=== PATIENT | female | born 1940 | race African-American/Black ===

== ENCOUNTER 2017-01-19 15:22 | Inpatient (IN) | payer MEDICARE, MEDICAID ==
[~2017-01-19] VITALS: Ht 160 cm; Wt 82.6 kg
[~2017-01-19 15:22] MED LIST: AMLO10TA80 PO; CLON0.1T PO; GABA-533 PO; LOSA100T14 PO; LOSA25TA12; NIFEDIPINE PO; OMEP20CA10 PO; SIMV40TA5 PO; [UNRECOGNIZED DRUG - CODE] PO; coumadin PO
[2017-01-19] MEDS ORDERED: ASPIRIN 81MG TABLET PO ONE (17:15)
[2017-01-19] MEDS: NITROGLYCERIN 0.4MG TABLET SL SL PRN ×3 (17:29→19:15)
[2017-01-19 17:47] LABS: BASOPHILS % 0.9 % (0.0-2.0); EOSINOPHILS % 4.1 % (0.0-5.0); HEMATOCRIT. 36.7 % (36.0-48.0); HEMOGLOBIN. 12.2 g/dL (12.0-16.0); LYMPHOCYTES % 26.6 % (20.0-50.0); MEAN CORPUSCULAR HEMOGLOBIN 24.7 pg (28.0-32.0); MEAN CORPUSCULAR VOLUME 74.2 fL (81.0-99.0); MEAN PLATELET VOLUME 8.5 fl (7.4-10.4); NEUTROPHILS % 60.4 % (40.0-76.0); PLATELET 240 x1000/uL (130-400); RED BLOOD CELL COUNT 4.94 mill/uL (4.2-5.4); RED CELL DISTRIBUTION WIDTH 15.5 % (11.6-14.6)
[2017-01-19 17:50] LABS: CHLORIDE 107 mEq/L (98-107)
[2017-01-19 17:52] LABS: PROTHROMBIN TIME 10.8 sec
[2017-01-19 17:56] LABS: CARBON DIOXIDE 28 mEq/L (21-32)
[2017-01-19 18:01] LABS: TROPONIN I 0.31 ng/mL (0.00-0.04)
[2017-01-19] MEDS ORDERED: NITROGLYCERIN OINT 1GM/INCH UDPKT TD ONE (18:15)
[2017-01-19] MEDS ORDERED: FUROSEMIDE 40MG/4ML VIAL IVP ONE (18:15)
[2017-01-19] MEDS ORDERED: ENOXAPARIN 80MG/0.8ML SYR SUBCUT ONE (18:15)
[2017-01-19] MEDS ORDERED: MORPHINE SULFATE 4 MG/ML CPJ (NOT FOR IM USE) IV ONE (20:00)
[2017-01-19] MEDS ORDERED: HYDRALAZINE 20MG/ML VIAL IV ONE (20:00)
[2017-01-19 21:30] VITALS: BP 152/90
[2017-01-19 22:00] VITALS: BP 160/76
[2017-01-20] VITALS (11 sets, daily range): BP systolic 120–170; BP diastolic 57–103
[2017-01-20] MEDS ORDERED: CILOSTAZOL (00:14)
[2017-01-20] MEDS ORDERED: CILO100T PO (00:14)
[2017-01-20] MEDS ORDERED: CYAN10009 PO (00:14)
[2017-01-20] MEDS ORDERED: ACET-2178 PO ×2 (00:14→00:20)
[2017-01-20] MEDS ORDERED: METROPOLOL (00:14)
[2017-01-20] MEDS ORDERED: MYLANTA (00:14)
[2017-01-20] MEDS ORDERED: ASPI-1035 PO (00:14)
[2017-01-20 02:04] LABS: CREATINE KINASE MB FRACTION 1.2 ng/mL (0.5-3.6); TROPONIN I 0.22 ng/mL (0.00-0.04)
[2017-01-20 05:47] LABS: BASOPHILS % 0.4 % (0.0-2.0); EOSINOPHILS % 0.7 % (0.0-5.0); HEMATOCRIT. 35.8 % (36.0-48.0); HEMOGLOBIN. 12.2 g/dL (12.0-16.0); LYMPHOCYTES % 16.3 % (20.0-50.0); MEAN CORPUSCULAR VOLUME 73.7 fL (81.0-99.0); MEAN PLATELET VOLUME 8.6 fl (7.4-10.4); MONOCYTES % 6.6 % (2.0-8.0); PLATELET 231 x1000/uL (130-400); RED BLOOD CELL COUNT 4.86 mill/uL (4.2-5.4); RED CELL DISTRIBUTION WIDTH 15.4 % (11.6-14.6)
[2017-01-20] MEDS: OMEPRAZOLE 20MG CAPSULE EXTENDED RELEASE PO SCH (06:23)
[2017-01-20] MEDS ORDERED: MYLANTA PRN (06:30)
[2017-01-20] MEDS ORDERED: ACETAMINOPHEN 325MG TABLET PO PRN ×2 (06:30→14:00)
[2017-01-20 06:51] LABS: CHLORIDE 105 mEq/L (98-107); HDL CHOLESTEROL 65 mg/dL (40-59); LDL CHOLESTEROL 154 mg/dL (5-100)
[2017-01-20 06:54] LABS: CARBON DIOXIDE 26 mEq/L (21-32)
[2017-01-20] MEDS ORDERED: MAGNESIUM/ALUMINUM HYDROXIDE/SIMETHICONE 30ML UDC PO PRN (07:00)
[2017-01-20] MEDS: LOSARTAN POTASSIUM 100 MG TABLET PO SCH (08:13)
[2017-01-20] MEDS: ASPIRIN 81MG EC TABLET PO SCH (08:13)
[2017-01-20] MEDS: ACETAMINOPHEN 325MG TABLET PO PRN ×2 (08:15→21:47)
[2017-01-20] MEDS ORDERED: ONDANSETRON HCL 4MG/2ML VIAL IV PRN ×2 (08:15→14:00)
[2017-01-20] MEDS: CYANOCOBALAMIN 1000MCG TABLET PO SCH (08:15)
[2017-01-20] MEDS: GABAPENTIN 400MG CAPSULE PO SCH (08:15)
[2017-01-20] MEDS ORDERED: METOPROLOL TARTRATE 50MG TABLET PO SCH (09:00)
[2017-01-20] MEDS ORDERED: METROPOLOL 50 MG PO SCH (09:00)
[2017-01-20 09:57] LABS: CREATINE KINASE MB FRACTION 1.2 ng/mL (0.5-3.6); TROPONIN I 0.21 ng/mL (0.00-0.04)
[2017-01-20] MEDS ORDERED: POTASSIUM CHLORIDE 20MEQ TABLET SR PO NR (10:45)
[2017-01-20] MEDS: CILOSTAZOL 100MG TABLET PO SCH ×2 (11:15→17:19)
[2017-01-20] MEDS: CLONIDINE 0.1MG TABLET PO SCH ×2 (11:19→21:05)
[2017-01-20] MEDS ORDERED: LIDOCAINE HCL 1% 20ML VIAL (Pyxis) INJ ONE (12:57)
[2017-01-20] MEDS ORDERED: IOHEXOL-300 100 ML BOTTLE ONE (12:57)
[2017-01-20] MEDS ORDERED: MIDAZOLAM HCL 2 MG/2 ML VIAL ONE (12:58)
[2017-01-20] MEDS ORDERED: FENTANYL CITRATE/PF 50MCG/ML 2ML VIAL ONE (12:58)
[2017-01-20] MEDS ORDERED: ATROPINE SULFATE 1MG/10ML SYR IV PRN (14:00)
[2017-01-20] MEDS: ENOXAPARIN 80MG/0.8ML SYR SUBCUT SCH (17:19)
[2017-01-20 18:33] LABS: CREATINE KINASE MB FRACTION 1.5 ng/mL (0.5-3.6)
[2017-01-20] MEDS ORDERED: ATORVASTATIN CALCIUM 20MG TABLET PO SCH (21:00)
[2017-01-20] MEDS: ATORVASTATIN CALCIUM 40MG TABLET PO SCH (21:05)
[2017-01-21] VITALS (12 sets, daily range): BP systolic 96–147; BP diastolic 40–71
[2017-01-21] MEDS: CLONIDINE 0.1MG TABLET PO SCH ×3 (06:00→21:28)
[2017-01-21] MEDS: OMEPRAZOLE 20MG CAPSULE EXTENDED RELEASE PO SCH (06:33)
[2017-01-21] MEDS: ENOXAPARIN 80MG/0.8ML SYR SUBCUT SCH ×2 (06:37→21:29)
[2017-01-21 06:51] LABS: BASOPHILS % 0.6 % (0.0-2.0); EOSINOPHILS % 4.1 % (0.0-5.0); HEMATOCRIT. 33.9 % (36.0-48.0); HEMOGLOBIN. 11.4 g/dL (12.0-16.0); LYMPHOCYTES % 23.2 % (20.0-50.0); MEAN CORPUSCULAR HEMOGLOBIN 25.1 pg (28.0-32.0); MEAN CORPUSCULAR VOLUME 74.4 fL (81.0-99.0); MEAN PLATELET VOLUME 8.8 fl (7.4-10.4); MONOCYTES % 8.9 % (2.0-8.0); NEUTROPHILS % 63.2 % (40.0-76.0); PLATELET 221 x1000/uL (130-400); RED BLOOD CELL COUNT 4.55 mill/uL (4.2-5.4); RED CELL DISTRIBUTION WIDTH 15.5 % (11.6-14.6)
[2017-01-21 07:10] LABS: TROPONIN I 0.19 ng/mL (0.00-0.04)
[2017-01-21] MEDS ORDERED: ERGOCALCIFEROL 50000UNITS CAPSULE PO SCH (09:00)
[2017-01-21] MEDS: LOSARTAN POTASSIUM 100 MG TABLET PO SCH (09:56)
[2017-01-21] MEDS: ASPIRIN 81MG EC TABLET PO SCH (09:56)
[2017-01-21] MEDS: CILOSTAZOL 100MG TABLET PO SCH ×2 (09:56→17:48)
[2017-01-21] MEDS: CYANOCOBALAMIN 1000MCG TABLET PO SCH (09:56)
[2017-01-21] MEDS: GABAPENTIN 400MG CAPSULE PO SCH (09:56)
[2017-01-21] MEDS ORDERED: MAGNESIUM HYDROXIDE 400MG/5ML 30ML UDC PO PRN (10:15)
[2017-01-21] MEDS ORDERED: ALPRAZOLAM 0.25 MG TABLET PO PRN (13:15)
[2017-01-21] MEDS ORDERED: ACETAMINOPHEN 325MG TABLET PO PRN (13:15)
[2017-01-21] MEDS ORDERED: NITROGLYCERIN 0.4MG TABLET SL SL PRN (13:15)
[2017-01-21] MEDS ORDERED: DOCUSATE SODIUM 100MG CAPSULE PO SCH (21:00)
[2017-01-21] MEDS ORDERED: BISACODYL 10MG SUPP PR PRN (21:00)
[2017-01-21] MEDS: ATORVASTATIN CALCIUM 40MG TABLET PO SCH (21:28)
[2017-01-21] MEDS: HYDROCODONE/ACETAMINOPHEN 5/325MG TABLET PO PRN ×2 (21:35→23:08)
[2017-01-22] VITALS (14 sets, daily range): BP systolic 91–135; BP diastolic 48–80
[2017-01-22] MEDS: FAMOTIDINE 20MG TABLET PO SCH (06:08)
[2017-01-22] MEDS: CLONIDINE 0.1MG TABLET PO SCH ×3 (06:08→22:19)
[2017-01-22] MEDS: GABAPENTIN 400MG CAPSULE PO SCH (09:34)
[2017-01-22] MEDS: CYANOCOBALAMIN 1000MCG TABLET PO SCH (09:34)
[2017-01-22] MEDS: ASPIRIN 81MG EC TABLET PO SCH (09:34)
[2017-01-22] MEDS: LOSARTAN POTASSIUM 100 MG TABLET PO SCH (09:34)
[2017-01-22] MEDS: ENOXAPARIN 80MG/0.8ML SYR SUBCUT SCH (09:35)
[2017-01-22 14:36] LABS: CLARITY URINE CLOUDY (CLEAR); COLOR URINE DARK YELLOW (YELLOW); GLUCOSE URINE NEGATIVE (NEGATIVE); KETONES URINE TRACE (NEGATIVE); LEUKOCYTE ESTERASE URINE 2+ (NEGATIVE); NITRITE URINE NEGATIVE (NEGATIVE); OCCULT BLOOD URINE NEGATIVE (NEGATIVE); PH URINE 5.5 (4.5-8.0); PROTEIN URINE NEGATIVE (NEGATIVE); SPECIFIC GRAVITY URINE 1.022 (1.005-1.030)
[2017-01-22] MEDS: ATORVASTATIN CALCIUM 40MG TABLET PO SCH (20:44)
[2017-01-22] MEDS: HYDROCODONE/ACETAMINOPHEN 5/325MG TABLET PO PRN (20:45)
[2017-01-22] MEDS: ALLOPURINOL 300 MG TABLET PO SCH (20:45)
[2017-01-22] MEDS ORDERED: ASCORBIC ACID 500 MG TABLET PO SCH (21:00)
[2017-01-22] MEDS ORDERED: CHLORHEXIDINE GLUCONATE 4% EXTERNAL USE TOP SCH (21:00)
[2017-01-23] VITALS (28 sets, daily range): BP systolic 77–221; BP diastolic 47–116
[2017-01-23] MEDS ORDERED: NICARDIPINE 50 MG in NS 250 ML IV NR (05:00)
[2017-01-23] MEDS: ALLOPURINOL 300 MG TABLET PO SCH (05:36)
[2017-01-23] MEDS ORDERED: NOREPINEPHRINE 4 MG in DEXT 5% WATER 246 ML IV NR (06:00)
[2017-01-23] MEDS ORDERED: EPINEPHRINE 4 MG in DEXT 5% WATER 246 ML IV NR (06:00)
[2017-01-23] MEDS ORDERED: INSULIN REGULAR 100 UNITS in SODIUM CHLORIDE 0.9% 100ML IV ONE (06:00)
[2017-01-23] MEDS ORDERED: DEL NIDO ELECTROLYTE-S(PH 7.4) 1,000 ML IV ONE (06:00)
[2017-01-23] MEDS: CLONIDINE 0.1MG TABLET PO SCH (06:00)
[2017-01-23] MEDS: FAMOTIDINE 20MG TABLET PO SCH (06:26)
[2017-01-23 07:06] LABS: BASOPHILS % 0.5 % (0.0-2.0); EOSINOPHILS % 5.4 % (0.0-5.0); HEMATOCRIT. 32.3 % (36.0-48.0); HEMOGLOBIN. 10.9 g/dL (12.0-16.0); LYMPHOCYTES % 34.2 % (20.0-50.0); MEAN CORPUSCULAR HEMOGLOBIN 25.1 pg (28.0-32.0); MEAN CORPUSCULAR VOLUME 74.5 fL (81.0-99.0); MEAN PLATELET VOLUME 8.8 fl (7.4-10.4); MONOCYTES % 10.2 % (2.0-8.0); NEUTROPHILS % 49.7 % (40.0-76.0); PLATELET 180 x1000/uL (130-400); PROTHROMBIN TIME 10.7 sec; RED BLOOD CELL COUNT 4.34 mill/uL (4.2-5.4); RED CELL DISTRIBUTION WIDTH 15.5 % (11.6-14.6)
[2017-01-23 07:55] LABS: CARBON DIOXIDE 26 mEq/L (21-32); CHLORIDE 107 mEq/L (98-107)
[2017-01-23] MEDS: GABAPENTIN 400MG CAPSULE PO SCH (08:44)
[2017-01-23] MEDS: LOSARTAN POTASSIUM 100 MG TABLET PO SCH (08:44)
[2017-01-23] MEDS: CYANOCOBALAMIN 1000MCG TABLET PO SCH (08:44)
[2017-01-23] MEDS ORDERED: CHLORHEXIDINE GLUCONATE 4% EXTERNAL USE TOP SCH (09:00)
[2017-01-23] MEDS ORDERED: PAPAVERINE HCL 180MG in SODIUM CHLORIDE 0.9% 24ML IV ONE (09:00)
[2017-01-23] MEDS: ASPIRIN 81MG EC TABLET PO SCH (10:09)
[2017-01-23] MEDS ORDERED: INSULIN REGULAR (DRIP) 100 UNITS in SODIUM CHLORIDE 0.9% 99 ML IV ONE (10:45)
[2017-01-23] MEDS: HYDRALAZINE 20MG/ML VIAL IV PRN (10:46)
[2017-01-23] MEDS ORDERED: METHYLENE BLUE 50 MG/10 ML AMP IV SCH (11:00)
[2017-01-23] MEDS ORDERED: VANCOMYCIN 1G PREMIX 200ML IV NR (12:00)
[2017-01-23] MEDS ORDERED: DEXAMETHASONE 4MG/ML 1ML VIAL ONE (12:22)
[2017-01-23] MEDS ORDERED: ROCURONIUM BROMIDE 10MG/ML VIAL 5ML IV ONE (12:22)
[2017-01-23] MEDS ORDERED: PROPOFOL 200MG/20ML VIAL IV ONE (12:22)
[2017-01-23] MEDS ORDERED: VASOPRESSIN 20 UNIT/ML 1ML ONE (12:22)
[2017-01-23] MEDS ORDERED: BACITRACIN ZINC 15GM TUBE TOP ONE (12:26)
[2017-01-23] MEDS ORDERED: LEVOFLOXACIN 500MG PREMIX 100 ML IV ONE (12:26)
[2017-01-23] MEDS ORDERED: AMINOCAPROIC ACID 250 MG/ML 20ML VIAL ONE (12:28)
[2017-01-23] MEDS ORDERED: FENTANYL CITRATE/PF 50MCG/ML 5ML VIAL ONE (12:33)
[2017-01-23] MEDS ORDERED: MIDAZOLAM HCL 5 MG/ML VIAL ONE (12:33)
[2017-01-23] MEDS ORDERED: PROPOFOL 10MG/ML 100ML 100 ML IV ONE ×2 (13:36→17:41)
[2017-01-23] MEDS ORDERED: NITROGLYCERIN 50MG PREMIX 250 ML IV ONE (13:36)
[2017-01-23] MEDS ORDERED: POTASSIUM CHLORIDE 40MEQ/20ML INJ IV ONE (13:44)
[2017-01-23] MEDS ORDERED: HEPARIN 1000 UNITS/ML 10ML ONE (14:03)
[2017-01-23] MEDS ORDERED: PROTAMINE SULFATE 10MG/ML VIAL 25ML IV ONE (17:10)
[2017-01-23] MEDS ORDERED: FUROSEMIDE 20MG/2ML VIAL ONE (17:57)
[2017-01-23] MEDS ORDERED: NITROGLYCERIN 50MG PREMIX 250 ML IV SCH (19:38)
[2017-01-23] MEDS ORDERED: DEXT 5%/0.45% NACL 1000ML 1,000 ML IV SCH (19:38)
[2017-01-23] MEDS ORDERED: SODIUM CHLORIDE 0.9% 500 ML IV PRN (19:38)
[2017-01-23] MEDS ORDERED: NOREPINEPHRINE 4 MG in DEXT 5% WATER 250 ML IV SCH (19:38)
[2017-01-23] MEDS ORDERED: MAGNESIUM 1 G PREMIX 100 ML IV PRN (19:45)
[2017-01-23] MEDS ORDERED: ALBUMIN HUMAN 12.5G/250ML (5%) IV PRN (19:45)
[2017-01-23] MEDS ORDERED: ONDANSETRON HCL 4MG/2ML VIAL IV PRN (19:45)
[2017-01-23] MEDS ORDERED: ACETAMINOPHEN 325MG TABLET PO PRN (19:45)
[2017-01-23] MEDS ORDERED: OXYCODONE HCL/ACETAMINOPHEN 5/325MG TABLET PO PRN ×2 (19:45)
[2017-01-23 20:00] LABS: BG BASE EXCESS -2.7 mmol/L (-2.0-2.0); BG CARBOXYHEMOGLOBIN 0.4 % (0.5-1.5); BG DEOXYHEMOGLOBIN 0.8 % (0.0-5.0); BG FRACTION INSPIRED OXYGEN 100; BG HCO3 ACT 18.9 mmol/L (22.0-26.0); BG METHEMOGLOBIN 0.5 % (0.0-1.5); BG OXYGEN SATURATION 99.2 % (92.0-98.5); BG OXYHEMOGLOBIN 98.3 % (94.0-97.0); BG PCO2 25.9 mmHg (35.0-45.0); BG PH 7.482 (7.350-7.450); BG PO2 300.7 mmHg (75.0-100.0); BG PRESSURE SUPPORT 10; BG SAMPLE SITE A-LINE; BG TIDAL VOLUME(mL) 600 mL; BG TOTAL HEMOGLOBIN 15.3 g/dL (12.0-18.0); BG VENT MODE VENT - SIMV; BG VENT RATE 12 set
[2017-01-23 20:13] LABS: HEMATOCRIT. 45.7 % (36.0-48.0); HEMOGLOBIN. 15.5 g/dL (12.0-16.0); MEAN CORPUSCULAR HEMOGLOBIN 26.2 pg (28.0-32.0); MEAN CORPUSCULAR VOLUME 77.3 fL (81.0-99.0); MEAN PLATELET VOLUME 7.6 fl (7.4-10.4); PLATELET 214 x1000/uL (130-400); RED CELL DISTRIBUTION WIDTH 17.8 % (11.6-14.6)
[2017-01-23 20:16] LABS: CHLORIDE 115 mEq/L (98-107)
[2017-01-23 20:19] LABS: INR 1.2; PARTIAL THROMBOPLASTIN TIME 26.3 sec (24.0-34.0); PROTHROMBIN TIME 12.3 sec
[2017-01-23 20:20] LABS: BG CARBOXYHEMOGLOBIN 1.1 % (0.5-1.5); BG DEOXYHEMOGLOBIN 22.4 % (0.0-5.0); BG FRACTION INSPIRED OXYGEN 100; BG METHEMOGLOBIN 0.4 % (0.0-1.5); BG OXYGEN SATURATION 77.3 % (92.0-98.5); BG OXYHEMOGLOBIN 76.1 % (94.0-97.0); BG PO2 38.4 mmHg (75.0-100.0); BG PRESSURE SUPPORT 10; BG SAMPLE SITE A-LINE; BG TIDAL VOLUME(mL) 600 mL; BG TOTAL HEMOGLOBIN 16.6 g/dL (12.0-18.0); BG VENT MODE VENT - SIMV; BG VENT RATE 12 set
[2017-01-23 20:21] LABS: CARBON DIOXIDE 23 mEq/L (21-32)
[2017-01-23] MEDS ORDERED: ALBUMIN HUMAN 25GM/500ML (5%) IV ONE (20:30)
[2017-01-23 20:36] LABS: PLATELET ESTIMATE NORMAL
[2017-01-23 21:23] LABS: BG BASE EXCESS -3.1 mmol/L (-2.0-2.0); BG CARBOXYHEMOGLOBIN 0.8 % (0.5-1.5); BG DEOXYHEMOGLOBIN 2.5 % (0.0-5.0); BG FRACTION INSPIRED OXYGEN 50; BG HCO3 ACT 20.5 mmol/L (22.0-26.0); BG METHEMOGLOBIN 0.3 % (0.0-1.5); BG OXYGEN SATURATION 97.5 % (92.0-98.5); BG OXYHEMOGLOBIN 96.4 % (94.0-97.0); BG PCO2 32.6 mmHg (35.0-45.0); BG PH 7.416 (7.350-7.450); BG PO2 97.1 mmHg (75.0-100.0); BG PRESSURE SUPPORT 10; BG SAMPLE SITE A-LINE; BG TIDAL VOLUME(mL) 550 mL; BG TOTAL HEMOGLOBIN 14.6 g/dL (12.0-18.0); BG VENT MODE VENT - SIMV; BG VENT RATE 12 set
[2017-01-23] MEDS ORDERED: ALBUMIN HUMAN 12.5G/250ML (5%) IV ONE ×3 (21:30)
[2017-01-23] MEDS ORDERED: CALCIUM CHLORIDE 1,000 MG in DEXT 5% WATER 250 ML IV NR (22:00)
[2017-01-23] MEDS: MORPHINE SULFATE 2 MG/ML CPJ (NOT FOR IM USE) IV PRN (23:25)
[2017-01-24] VITALS (92 sets, daily range): BP systolic 102–159; BP diastolic 41–84
[2017-01-24 00:11] LABS: HEMATOCRIT. 37.8 % (36.0-48.0); HEMOGLOBIN. 12.8 g/dL (12.0-16.0); MEAN PLATELET VOLUME 7.6 fl (7.4-10.4); PLATELET 189 x1000/uL (130-400); RED BLOOD CELL COUNT 4.91 mill/uL (4.2-5.4)
[2017-01-24 00:13] LABS: CHLORIDE 114 mEq/L (98-107)
[2017-01-24 00:18] LABS: CARBON DIOXIDE 24 mEq/L (21-32)
[2017-01-24] MEDS: KCL 10MEQ/50ML PREMIX 50 ML IV NR ×2 (00:29→00:56)
[2017-01-24] MEDS ORDERED: VANCOMYCIN 1 G PREMIX 200 ML IV SCH (02:00)
[2017-01-24] MEDS: MAGNESIUM/ALUMINUM HYDROXIDE/SIMETHICONE 30ML UDC NG SCH (04:00)
[2017-01-24] MEDS ORDERED: NICARDIPINE 50 MG in SODIUM CHLORIDE 0.9% 230 ML IV PRN (04:45)
[2017-01-24 05:35] LABS: HEMATOCRIT. 35.6 % (36.0-48.0); HEMOGLOBIN. 12.1 g/dL (12.0-16.0); MEAN CORPUSCULAR HEMOGLOBIN 26.2 pg (28.0-32.0); MEAN CORPUSCULAR VOLUME 76.7 fL (81.0-99.0); MEAN PLATELET VOLUME 7.7 fl (7.4-10.4); PLATELET 162 x1000/uL (130-400); RED BLOOD CELL COUNT 4.64 mill/uL (4.2-5.4)
[2017-01-24 05:41] LABS: CARBON DIOXIDE 26 mEq/L (21-32); CHLORIDE 115 mEq/L (98-107)
[2017-01-24] MEDS: KCL 10MEQ/50ML PREMIX 50 ML IV SCH ×2 (06:37→08:40)
[2017-01-24] MEDS ORDERED: ALBUMIN HUMAN 12.5G/250ML (5%) IV SCH (06:45)
[2017-01-24 08:39] LABS: PLATELET ESTIMATE NORMAL
[2017-01-24 08:43] LABS: PLATELET ESTIMATE NORMAL
[2017-01-24] MEDS ORDERED: KETOROLAC 15MG/ML VIAL IV SCH (08:45)
[2017-01-24] MEDS ORDERED: MAGNESIUM/ALUMINUM HYDROXIDE/SIMETHICONE 30ML UDC NG PRN (08:45)
[2017-01-24] MEDS: DEXT 5%/0.2% NACL 1,000 ML IV SCH (08:52)
[2017-01-24] MEDS ORDERED: FAMOTIDINE 20MG/2ML VIAL IV SCH (09:00)
[2017-01-24 09:08] LABS: BG BASE EXCESS -0.8 mmol/L (-2.0-2.0); BG CARBOXYHEMOGLOBIN 0.5 % (0.5-1.5); BG DEOXYHEMOGLOBIN 6.8 % (0.0-5.0); BG FRACTION INSPIRED OXYGEN 28; BG HCO3 ACT 22.1 mmol/L (22.0-26.0); BG METHEMOGLOBIN 0.2 % (0.0-1.5); BG OXYGEN SATURATION 93.2 % (92.0-98.5); BG OXYHEMOGLOBIN 92.5 % (94.0-97.0); BG PCO2 31.4 mmHg (35.0-45.0); BG PH 7.465 (7.350-7.450); BG PO2 66.9 mmHg (75.0-100.0); BG SAMPLE SITE A-LINE; BG TOTAL HEMOGLOBIN 12.8 g/dL (12.0-18.0); BG VENT MODE MASK - AEROSOL
[2017-01-24 09:27] LABS: BG BASE EXCESS -1.2 mmol/L (-2.0-2.0); BG CARBOXYHEMOGLOBIN 0.8 % (0.5-1.5); BG DEOXYHEMOGLOBIN 4.1 % (0.0-5.0); BG FRACTION INSPIRED OXYGEN 40; BG HCO3 ACT 22.3 mmol/L (22.0-26.0); BG METHEMOGLOBIN 0.3 % (0.0-1.5); BG OXYGEN SATURATION 95.9 % (92.0-98.5); BG OXYHEMOGLOBIN 94.8 % (94.0-97.0); BG PCO2 33.4 mmHg (35.0-45.0); BG PH 7.442 (7.350-7.450); BG PRESSURE SUPPORT 10; BG SAMPLE SITE LEFT BRACHIAL; BG VENT MODE VENT - CPAP
[2017-01-24] MEDS ORDERED: NICARDIPINE 100 MG in DEXT 5% WATER 60 ML IV PRN (09:30)
[2017-01-24] MEDS: IPRATROPIUM/ALBUTEROL 0.5-3(2.5)MG/3ML NEB HHN SCH ×3 (12:34→20:48)
[2017-01-24] MEDS ORDERED: ALBUMIN HUMAN 12.5G/250ML (5%) IV ONE (13:55)
[2017-01-24] MEDS ORDERED: POTASSIUM CHLORIDE 10MEQ IN WATER 50ML PREMIX IV ONE (13:55)
[2017-01-24] MEDS: ASPIRIN 81MG TABLET PO SCH (14:05)
[2017-01-24] MEDS ORDERED: CLONIDINE 0.1MG TABLET PO PRN (14:45)
[2017-01-24] MEDS: KETOROLAC 15MG/ML VIAL IV PRN (14:48)
[2017-01-24] MEDS: GABAPENTIN 400MG CAPSULE PO SCH (15:32)
[2017-01-24] MEDS: METOPROLOL TARTRATE 50MG TABLET PO SCH ×2 (15:32→21:49)
[2017-01-24] MEDS ORDERED: ALBUMIN HUMAN 12.5G/250ML (5%) IV NR (16:00)
[2017-01-24] MEDS: TRAMADOL 50MG TABLET PO PRN (16:00)
[2017-01-24 19:11] LABS: CARBON DIOXIDE 24 mEq/L (21-32); CHLORIDE 112 mEq/L (98-107)
[2017-01-24] MEDS ORDERED: FUROSEMIDE 20MG/2ML VIAL IVP NR (19:45)
[2017-01-24] MEDS: LOSARTAN POTASSIUM 50 MG TABLET PO SCH (21:49)
[2017-01-24] MEDS: ATORVASTATIN CALCIUM 40MG TABLET PO SCH (21:49)
[2017-01-25] VITALS (59 sets, daily range): BP systolic 92–152; BP diastolic 42–94
[2017-01-25] MEDS: TRAMADOL 50MG TABLET PO PRN ×2 (00:03→06:20)
[2017-01-25] MEDS: IPRATROPIUM/ALBUTEROL 0.5-3(2.5)MG/3ML NEB HHN SCH ×4 (00:33→12:45)
[2017-01-25] MEDS ORDERED: INSULIN REGULAR (DRIP) 100 UNITS in SODIUM CHLORIDE 0.9% 99 ML IV PRN (01:30)
[2017-01-25] MEDS ORDERED: INSULIN REGULAR (DRIP) 100 UNITS in SODIUM CHLORIDE 0.9% 99 ML IV SCH (01:34)
[2017-01-25] MEDS ORDERED: DEXTROSE 50% WATER 50ML SYRINGE IV PRN ×3 (01:45→11:00)
[2017-01-25] MEDS: BLOOD SUGAR DIAGNOSTIC STRIP TEST SCH ×10 (02:39→20:48)
[2017-01-25] MEDS: DEXT 5%/0.2% NACL 1,000 ML IV SCH (05:47)
[2017-01-25 05:53] LABS: BASOPHILS % 0.2 % (0.0-2.0); EOSINOPHILS % 0.7 % (0.0-5.0); HEMATOCRIT. 32.5 % (36.0-48.0); LYMPHOCYTES % 13.2 % (20.0-50.0); MEAN CORPUSCULAR HEMOGLOBIN 26.5 pg (28.0-32.0); MEAN CORPUSCULAR VOLUME 78.5 fL (81.0-99.0); MEAN PLATELET VOLUME 8.5 fl (7.4-10.4); MONOCYTES % 7.1 % (2.0-8.0); NEUTROPHILS % 78.8 % (40.0-76.0); PLATELET 127 x1000/uL (130-400); RED BLOOD CELL COUNT 4.14 mill/uL (4.2-5.4); RED CELL DISTRIBUTION WIDTH 17.6 % (11.6-14.6)
[2017-01-25 06:12] LABS: CARBON DIOXIDE 25 mEq/L (21-32); CHLORIDE 109 mEq/L (98-107)
[2017-01-25] MEDS ORDERED: FUROSEMIDE 20MG/2ML VIAL IVP NR (07:00)
[2017-01-25] MEDS: GABAPENTIN 400MG CAPSULE PO SCH (08:34)
[2017-01-25] MEDS: ASPIRIN 81MG TABLET PO SCH (08:34)
[2017-01-25] MEDS: FAMOTIDINE 20MG TABLET PO SCH (08:34)
[2017-01-25] MEDS: LOSARTAN POTASSIUM 50 MG TABLET PO SCH ×2 (08:34→20:47)
[2017-01-25] MEDS: METOPROLOL TARTRATE 50MG TABLET PO SCH ×2 (08:35→20:48)
[2017-01-25] MEDS: INSULIN LISPRO 100 UNITS/ML SUBCUT SCH ×3 (12:58→20:48)
[2017-01-25] MEDS ORDERED: MAGNESIUM 2 G PREMIX 50 ML IV NR (14:00)
[2017-01-25] MEDS: KETOROLAC 15MG/ML VIAL IV PRN (16:22)
[2017-01-25] MEDS: ATORVASTATIN CALCIUM 40MG TABLET PO SCH (20:47)
[2017-01-25] MEDS: BACITRACIN ZINC 15GM TUBE TOP SCH (22:10)
[2017-01-26] VITALS (46 sets, daily range): BP systolic 82–162; BP diastolic 41–88
[2017-01-26] MEDS: DEXT 5%/0.2% NACL 1,000 ML IV SCH (01:35)
[2017-01-26] MEDS: IPRATROPIUM/ALBUTEROL 0.5-3(2.5)MG/3ML NEB HHN SCH ×6 (01:56→20:15)
[2017-01-26 07:03] LABS: CARBON DIOXIDE 26 mEq/L (21-32); CHLORIDE 107 mEq/L (98-107)
[2017-01-26] MEDS: BLOOD SUGAR DIAGNOSTIC STRIP TEST SCH ×4 (07:50→20:34)
[2017-01-26] MEDS: INSULIN LISPRO 100 UNITS/ML SUBCUT SCH ×4 (08:20→20:34)
[2017-01-26] MEDS: FAMOTIDINE 20MG TABLET PO SCH (10:10)
[2017-01-26] MEDS: GABAPENTIN 400MG CAPSULE PO SCH (10:10)
[2017-01-26] MEDS: ASPIRIN 81MG TABLET PO SCH (10:10)
[2017-01-26] MEDS: LOSARTAN POTASSIUM 50 MG TABLET PO SCH ×2 (10:11→20:31)
[2017-01-26] MEDS: KETOROLAC 15MG/ML VIAL IV PRN ×2 (10:11→19:53)
[2017-01-26] MEDS: METOPROLOL TARTRATE 50MG TABLET PO SCH ×2 (10:11→20:32)
[2017-01-26] MEDS: BACITRACIN ZINC 15GM TUBE TOP SCH ×2 (10:15→21:21)
[2017-01-26] MEDS: TRAMADOL 50MG TABLET PO PRN (10:44)
[2017-01-26] MEDS ORDERED: ALBUMIN HUMAN 12.5G/250ML (5%) IV NR (14:00)
[2017-01-26] MEDS ORDERED: TRAMADOL 50MG TABLET PO PRN (17:30)
[2017-01-26] MEDS: ATORVASTATIN CALCIUM 40MG TABLET PO SCH (20:31)
[2017-01-27] VITALS (31 sets, daily range): BP systolic 100–188; BP diastolic 53–123
[2017-01-27] MEDS: IPRATROPIUM/ALBUTEROL 0.5-3(2.5)MG/3ML NEB HHN SCH ×6 (00:27→20:42)
[2017-01-27 05:22] LABS: BASOPHILS % 0.5 % (0.0-2.0); EOSINOPHILS % 6.1 % (0.0-5.0); HEMATOCRIT. 30.9 % (36.0-48.0); HEMOGLOBIN. 10.5 g/dL (12.0-16.0); LYMPHOCYTES % 14.2 % (20.0-50.0); MEAN CORPUSCULAR HEMOGLOBIN 26.5 pg (28.0-32.0); MEAN CORPUSCULAR VOLUME 78.4 fL (81.0-99.0); MEAN PLATELET VOLUME 8.3 fl (7.4-10.4); MONOCYTES % 8.3 % (2.0-8.0); NEUTROPHILS % 70.9 % (40.0-76.0); PLATELET 120 x1000/uL (130-400); RED BLOOD CELL COUNT 3.95 mill/uL (4.2-5.4); RED CELL DISTRIBUTION WIDTH 17.6 % (11.6-14.6)
[2017-01-27 06:11] LABS: CARBON DIOXIDE 25 mEq/L (21-32); CHLORIDE 108 mEq/L (98-107)
[2017-01-27] MEDS: HYDRALAZINE 20MG/ML VIAL IV PRN (06:25)
[2017-01-27] MEDS: MORPHINE SULFATE 2 MG/ML CPJ (NOT FOR IM USE) IV PRN ×4 (07:17→18:36)
[2017-01-27] MEDS: BLOOD SUGAR DIAGNOSTIC STRIP TEST SCH ×4 (07:50→20:37)
[2017-01-27] MEDS: KETOROLAC 15MG/ML VIAL IV PRN (07:57)
[2017-01-27] MEDS ORDERED: ACETAMINOPHEN 650MG/20.3ML UDC PO PRN (08:00)
[2017-01-27] MEDS: INSULIN LISPRO 100 UNITS/ML SUBCUT SCH ×4 (08:20→20:37)
[2017-01-27] MEDS: LOSARTAN POTASSIUM 25 MG TABLET PO SCH ×2 (09:00→20:36)
[2017-01-27] MEDS: BACITRACIN ZINC 15GM TUBE TOP SCH ×2 (09:41→20:40)
[2017-01-27] MEDS: ASPIRIN 81MG TABLET PO SCH (09:41)
[2017-01-27] MEDS: GABAPENTIN 400MG CAPSULE PO SCH (09:42)
[2017-01-27] MEDS: METOPROLOL TARTRATE 25MG TABLET PO SCH ×2 (09:42→20:36)
[2017-01-27] MEDS: FAMOTIDINE 20MG TABLET PO SCH (09:42)
[2017-01-27] MEDS: ATORVASTATIN CALCIUM 40MG TABLET PO SCH (20:36)
[2017-01-28] VITALS (9 sets, daily range): BP systolic 124–144; BP diastolic 60–77
[2017-01-28] MEDS: IPRATROPIUM/ALBUTEROL 0.5-3(2.5)MG/3ML NEB HHN SCH ×3 (00:03→08:40)
[2017-01-28 05:30] LABS: BASOPHILS % 0.5 % (0.0-2.0); EOSINOPHILS % 7.5 % (0.0-5.0); HEMATOCRIT. 32.5 % (36.0-48.0); HEMOGLOBIN. 10.8 g/dL (12.0-16.0); LYMPHOCYTES % 21.1 % (20.0-50.0); MEAN CORPUSCULAR HEMOGLOBIN 26.6 pg (28.0-32.0); MEAN CORPUSCULAR VOLUME 80.1 fL (81.0-99.0); MEAN PLATELET VOLUME 8.4 fl (7.4-10.4); MONOCYTES % 9.7 % (2.0-8.0); NEUTROPHILS % 61.2 % (40.0-76.0); PLATELET 161 x1000/uL (130-400); RED BLOOD CELL COUNT 4.06 mill/uL (4.2-5.4); RED CELL DISTRIBUTION WIDTH 17.5 % (11.6-14.6)
[2017-01-28 06:28] LABS: CARBON DIOXIDE 24 mEq/L (21-32); CHLORIDE 110 mEq/L (98-107)
[2017-01-28] MEDS: BLOOD SUGAR DIAGNOSTIC STRIP TEST SCH ×2 (06:31→11:28)
[2017-01-28] MEDS: INSULIN LISPRO 100 UNITS/ML SUBCUT SCH ×2 (06:32→11:29)
[2017-01-28] MEDS: GABAPENTIN 400MG CAPSULE PO SCH (08:30)
[2017-01-28] MEDS: FAMOTIDINE 20MG TABLET PO SCH (08:30)
[2017-01-28] MEDS: LOSARTAN POTASSIUM 25 MG TABLET PO SCH (08:30)
[2017-01-28] MEDS: METOPROLOL TARTRATE 25MG TABLET PO SCH (08:31)
[2017-01-28] MEDS: ASPIRIN 81MG TABLET PO SCH (08:32)
== END 2017-01-28 15:30 | disposition home health service (06) | DRG 233 ==
LOC: ER 15:22 → 3WST 18:39 → CVICU 01-23 13:28 → 3WST 01-27 13:45
PROVIDERS: ADMIT Internal Medicine; ATTEND Internal Medicine
PROC: 4A023N7 Measurement of Cardiac Sampling and Pressure, Left Heart, Percutaneous Approach (ICD-10-PCS; principal; 2017-01-20)
PROC: B2111ZZ Fluoroscopy of Multiple Coronary Arteries using Low Osmolar Contrast (ICD-10-PCS; 2017-01-20)
PROC: 021209W Bypass Coronary Artery, Three Arteries from Aorta with Autologous Venous Tissue, Open Approach (ICD-10-PCS; 2017-01-23)
PROC: 02100Z9 Bypass Coronary Artery, One Artery from Left Internal Mammary, Open Approach (ICD-10-PCS; 2017-01-23)
PROC: 03B10ZZ Excision of Left Internal Mammary Artery, Open Approach (ICD-10-PCS; 2017-01-23)
PROC: 06BP0ZZ Excision of Right Saphenous Vein, Open Approach (ICD-10-PCS; 2017-01-23)
PROC: 0W9B30Z Drainage of Left Pleural Cavity with Drainage Device, Percutaneous Approach (ICD-10-PCS; 2017-01-23)
PROC: B246ZZ4 Ultrasonography of Right and Left Heart, Transesophageal (ICD-10-PCS; 2017-01-23)
PROC: 5A1221Z Performance of Cardiac Output, Continuous (ICD-10-PCS; 2017-01-23)
PROC: 30233R1 Transfusion of Nonautologous Platelets into Peripheral Vein, Percutaneous Approach (ICD-10-PCS; 2017-01-23)
PROC: 30233N1 Transfusion of Nonautologous Red Blood Cells into Peripheral Vein, Percutaneous Approach (ICD-10-PCS; 2017-01-23)
DX: I21.4 Non-ST elevation (NSTEMI) myocardial infarction (principal); I50.43 Acute on chronic combined systolic (congestive) and diastolic (congestive) heart failure; I16.1 Hypertensive emergency; I16.9 Hypertensive crisis, unspecified; I25.110 Atherosclerotic heart disease of native coronary artery with unstable angina pectoris; D64.9 Anemia, unspecified; E78.5 Hyperlipidemia, unspecified; E87.6 Hypokalemia; F17.200 Nicotine dependence, unspecified, uncomplicated; I44.7 Left bundle-branch block, unspecified; I49.1 Atrial premature depolarization; Z53.29 Procedure and treatment not carried out because of patient's decision for other reasons; I73.9 Peripheral vascular disease, unspecified; K21.9 Gastro-esophageal reflux disease without esophagitis; I11.0 Hypertensive heart disease with heart failure; Z88.0 Allergy status to penicillin; Z95.5 Presence of coronary angioplasty implant and graft; Z86.718 Personal history of other venous thrombosis and embolism; Z79.899 Other long term (current) drug therapy; Z88.6 Allergy status to analgesic agent
CPT/HCPCS: 36415; 36569; 36600; 71010; 76937; 80048; 80053; 80061; 81001; 82375; 82550; 82553; 82805; 82962; 83735; 83880; 84132; 84443; 84484; 85025; 85610; 85730; 86850; 86900; 86920; 87070; 93005; 93306; 93458; 93880; 94002; 94640; 96374; 96375; 97110; 97116; 97163; 97167; 97530; 99291; C1725; C1760; C1769; C1887; C1892; C1893; J0171; J0360; J1100; J1644; J1650; J1815; J1885; J1940; J1956; J2250; J2270; J2405; J2440; J2704; J3010; J3370; J3475; J3480; J3490; J7042; J7050; J7060; J7620; P9016; P9034; P9041; Q9967; Q9968

== ENCOUNTER 2018-11-15 14:36 | Emergency (ER) | payer MEDICARE, MEDICAID ==
[~2018-11-15] VITALS: Ht 160 cm; Wt 84.0 kg
[~2018-11-15 14:36] MED LIST changes: +ACET-2178 PO; +ASPI-1158 PO; +ASPI-1159 PO; +CHOL100046 PO; +CYAN10009 PO; +FERR-63 PO; +FURO20TA4 PO; +FURO40TA5 PO; +LOSA1TAB37 PO; -LOSA25TA12; +METO-411 PO; +METROPOLOL; +MONT10TA21 PO; +MYLANTA; -NIFEDIPINE PO; +OMEP20CA4 PO; -coumadin PO
[2018-11-15] MEDS ORDERED: SODIUM CHLORIDE 0.9% 1,000 ML IV ONE (18:09)
[2018-11-15] MEDS ORDERED: KETOROLAC 15MG/ML VIAL IV ONE (18:30)
[2018-11-15] MEDS ORDERED: ONDANSETRON HCL 4MG/2ML INJ IV ONE (18:30)
[2018-11-15 19:02] LABS: HEMATOCRIT. 35.3 % (36.0-48.0); HEMOGLOBIN. 11.8 g/dL (12.0-16.0); MEAN CORPUSCULAR HEMOGLOBIN 23.8 pg (28.0-32.0); MEAN CORPUSCULAR VOLUME 71.3 fL (81.0-99.0); MEAN PLATELET VOLUME 8.7 fl (7.4-10.4); PLATELET 202 x1000/uL (130-400); RED BLOOD CELL COUNT 4.95 mill/uL (4.2-5.4); RED CELL DISTRIBUTION WIDTH 16.9 % (11.6-14.6)
[2018-11-15 19:04] LABS: CHLORIDE 104 mEq/L (98-107)
[2018-11-15 19:52] LABS: CLARITY URINE CLEAR (CLEAR); COLOR URINE YELLOW (YELLOW); KETONES URINE NEGATIVE (NEGATIVE); LEUKOCYTE ESTERASE URINE NEGATIVE (NEGATIVE); NITRITE URINE NEGATIVE (NEGATIVE); OCCULT BLOOD URINE NEGATIVE (NEGATIVE); PH URINE 6.5 (4.5-8.0); PROTEIN URINE NEGATIVE (NEGATIVE); SPECIFIC GRAVITY URINE 1.006 (1.005-1.030); UROBILINOGEN URINE 0.2 E.U./dL (0.2-1.0)
[2018-11-15] MEDS ORDERED: CLONIDINE 0.2MG TABLET PO ONE (20:00)
[2018-11-15 20:47] LABS: NUCLEATED RED BLOOD CELLS 1 /100 WBC; PLATELET ESTIMATE NORMAL
[2018-11-15 21:18] VITALS: BP 162/91
== END 2018-11-15 21:23 | disposition home or self-care (01) ==
LOC: ER 14:36 → CANBEDREQ 23:16
DX: I16.0 Hypertensive urgency (principal); J11.1 Influenza due to unidentified influenza virus with other respiratory manifestations; I25.10 Atherosclerotic heart disease of native coronary artery without angina pectoris; I10 Essential (primary) hypertension; Z88.0 Allergy status to penicillin; Z95.1 Presence of aortocoronary bypass graft; Z79.82 Long term (current) use of aspirin; Z98.62 Peripheral vascular angioplasty status
CPT/HCPCS: 36415; 71045; 80053; 81003; 83605; 83880; 84145; 84484; 85025; 87804; 93005; 96361; 96374; 96375; 99291; J1885; J2405; J7030

== ENCOUNTER 2021-12-16 16:00 | Emergency (ER) | payer BC, MEDICAID ==
[~2021-12-16] VITALS: Ht 162.6 cm; Wt 60.0 kg
[~2021-12-16 16:00] MED LIST changes: -ACET-2178 PO; -ASPI-1158 PO; -ASPI-1159 PO; +ASPI-1406 PO; +ASPI-1497 PO; +CYAN-50 PO; -CYAN10009 PO; -LOSA100T14 PO; +LOSA100T32 PO; -OMEP20CA10 PO; +OMEP20CA14 PO; +SIMV-46 PO; -SIMV40TA5 PO; +TOPUD PO
[2021-12-16] MEDS ORDERED: HYDROCODONE/APAP 7.5/325MG 1 TAB TABLET PO ONE (19:00)
[2021-12-16] MEDS ORDERED: HYDR-4001 MT (19:15)
[2021-12-16 19:25] VITALS: BP 191/80
== END 2021-12-16 21:53 | disposition home or self-care (01) ==
LOC: ER 16:49
DX: S52.592A Other fractures of lower end of left radius, initial encounter for closed fracture (principal); I10 Essential (primary) hypertension; I25.10 Atherosclerotic heart disease of native coronary artery without angina pectoris; W01.0XXA Fall on same level from slipping, tripping and stumbling without subsequent striking against object, initial encounter; Y93.9 Activity, unspecified; Y92.9 Unspecified place or not applicable; Z88.0 Allergy status to penicillin; Z95.1 Presence of aortocoronary bypass graft; Z79.82 Long term (current) use of aspirin; Z86.73 Personal history of transient ischemic attack (TIA), and cerebral infarction without residual deficits; Z98.61 Coronary angioplasty status; Z87.891 Personal history of nicotine dependence
CPT/HCPCS: 29125; 73090; 73110; 73130; 99284